=== PATIENT | male | born 1990 | race Caucasian/White ===

== ENCOUNTER 2021-02-26 20:34 | Emergency (ER) | payer BC, OTHER ==
[~2021-02-26] VITALS: Ht 177.8 cm; Wt 102.1 kg
[2021-02-26] MEDS ORDERED: KETOROLAC 30 MG/ML VIAL IVP STA (20:38)
[2021-02-26] MEDS ORDERED: LACTATED RINGERS 1,000 ML IV STA ×2 (20:38→22:14)
[2021-02-26 20:45] VITALS: BP 118/54
[2021-02-26] MEDS ORDERED: ONDANSETRON 4 MG/2 ML (SDV) Z0FRAN IVP ONE (20:45)
--- NOTE | 2021-02-26 20:56 | Diagnostic Imaging Report ---
EXAMINATION: Chest 1 view. HISTORY: Covid positive. Cough. COMPARISON: None available. FINDINGS: The lung volumes are low. No focal consolidation is seen. No large pleural effusion or pneumothorax is seen. The cardiomediastinal silhouette is normal in size and contour. No acute osseous abnormality is seen. IMPRESSION: Low lung volumes, likely due to poor inspiratory effort. No focal consolidation or pleural effusion. Dictated by: Dictated on workstation # [id number]
[2021-02-26] MEDS ORDERED: ACETAMINOPHEN 500 MG TAB (TYLENOL) ONE (21:00)
[2021-02-26] MEDS ORDERED: ACETAMINOPHEN 500 MG TAB (TYLENOL) PO STA (21:01)
[2021-02-26 21:09] LABS: BASOPHILS % (AUTO) 0 % (0-10); EOSINOPHILS % (AUTO) 0 % (0-10); HEMATOCRIT 43 % (40-54); HEMOGLOBIN 14.6 g/dL (13.3-17.7); LYMPHOCYTES # (AUTO) 1.6 10^3/uL (1.0-4.0); LYMPHOCYTES % (AUTO) 39 % (12-44); MEAN CORPUSCULAR HEMOGLOBIN 31 pg (25-34); MEAN CORPUSCULAR HGB CONC 34 g/dL (32-36); MEAN CORPUSCULAR VOLUME 91 fL (80-99); MEAN PLATELET VOLUME 10.5 fL (9.0-12.2); MONOCYTES # (AUTO) 0.3 10^3/uL (0.0-1.0); MONOCYTES % (AUTO) 7 % (0-12); NEUTROPHILS # (AUTO) 2.3 10^3/uL (1.8-7.8); NEUTROPHILS % (AUTO) 54 % (42-75); PLATELET COUNT 200 10^3/uL (130-400); WHITE BLOOD COUNT 4.2 10^3/uL (4.3-11.0)
--- NOTE | 2021-02-26 21:09 | ED General ---
General Stated Complaint: COVID POSITIVE Source of Information: Patient, EMS Exam Limitations: No Limitations History of Present Illness Date Seen by Provider: Feb 26, 2021 Time Seen by Provider: 20:33 Initial Comments Here with report of being Covid positive since 02/20/2021 from outside facility. Notes that his had increased fever today and insomnia since onset. States he is not able to eat or drink anything very well because he gets nauseated after eating after 5 bites. Has been using DayQuil and NyQuil to help with symptoms but last dose was last night. He has not had anything today. Arrives with a f ever of 102.8 per EMS. He is tachycardic. Overall feels weak. He is currently being evaluated for monoclonal antibody therapy. He is not hypoxic. Timing/Duration: 1 Week Severity: Moderate Modifying Factors: improves with Medication Associated Systoms: Cough, Fever/Chills, Loss of Appetite, Nausea/Vomiting, Shortness of Air, Weakness Allergies and Home Medications Allergies Coded Allergies: No Known Drug Allergies (Unverified , 02/26/21) Patient Home Medication List Home Medication List Reviewed: Yes Review of Systems Review of Systems Constitutional: see HPI, fever, malaise, weakness EENTM: nose congestion, throat pain Respiratory: cough, short of breath Cardiovascular: no symptoms reported Gastrointestinal: nausea, vomiting Genitourinary: No dysuria, No pain All Other Systems Reviewed Negative Unless Noted: Yes Past Tjavdas-Kvnjiv-Wdxlfm Hx Patient Social History Alcohol Use?: Yes Alcohol Frequency: Once in a while Past Medical History Surgeries: No Respiratory: No Cardiac: No Neurological: No Genitourinary: No Family Medical History Reviewed Nursing Family Hx Cancer Physical Exam-Suspected Sepsis Physical Exam Vital Signs Vital Signs - First Documented 02/26/21 20:45 Temp 39.4 Pulse 103 Resp 16 B/P (MAP) 118/54 (75) Pulse Ox 94 O2 Delivery Room Air Capillary Refill : Height, Weight, BMI Height: '" Weight: lbs. oz. kg; BMI Method: General Appearance: No Apparent Distress, WD/WN HEENT: PERRL/EOMI, Pharynx Normal Neck: Non Tender, Supple Respiratory: No Respiratory Distress, Wheezing (Trace wheezes throughout) Cardiovascular: No Murmur, Tachycardia Gastrointestinal: Non Tender, Soft Back: Normal Inspection, No CVA Tenderness, No Vertebral Tenderness Extremity: Normal Range of Motion, Non Tender Neurologic/Psychiatric: Alert, Oriented x3 Skin: normal color, warm/dry Focused Exam Lactate Level 02/26/21 20:50: Lactic Acid Level 0.98 Lactic Acid Level Laboratory Tests Test 02/26/21 20:50 Lactic Acid Level 0.98 MMOL/L (0.50-2.00) Progress/Results/Core Measures Suspected Sepsis SIRS Temperature: Pulse: Respiratory Rate: Laboratory Tests 02/26/21 20:50: White Blood Count 4.2L Blood Pressure / Mean: 02/26/21 20:50: Lactic Acid Level 0.98 Laboratory Tests 02/26/21 20:50: Creatinine 1.13, Platelet Count 200, Total Bilirubin 0.5 Results/Orders Lab Results Laboratory Tests Test 02/26/21 20:50 02/26/21 22:25 Range/Units White Blood Count 4.2 L 4.3-11.0 10^3/uL Red Blood Count 4.72 4.30-5.52 10^6/uL Hemoglobin 14.6 13.3-17.7 g/dL Hematocrit 43 40-54 % Mean Corpuscular Volume 91 80-99 fL Mean Corpuscular Hemoglobin 31 25-34 pg Mean Corpuscular Hemoglobin Concent 34 32-36 g/dL Red Cell Distribution Width 11.9 10.0-14.5 % Platelet Count 200 130-400 10^3/uL Mean Platelet Volume 10.5 9.0-12.2 fL Immature Granulocyte % (Auto) 0 % Neutrophils (%) (Auto) 54 42-75 % Lymphocytes (%) (Auto) 39 12-44 % Monocytes (%) (Auto) 7 0-12 % Eosinophils (%) (Auto) 0 0-10 % Basophils (%) (Auto) 0 0-10 % Neutrophils # (Auto) 2.3 1.8-7.8 10^3/uL Lymphocytes # (Auto) 1.6 1.0-4.0 10^3/uL Monocytes # (Auto) 0.3 0.0-1.0 10^3/uL Eosinophils # (Auto) 0.0 0.0-0.3 10^3/uL Basophils # (Auto) 0.0 0.0-0.1 10^3/uL Immature Granulocyte # (Auto) 0.0 0.0-0.1 10^3/uL D-Dimer 0.89 H 0.00-0.49 UG/ML Sodium Level 133 L 135-145 MMOL/L Potassium Level 3.3 L 3.6-5.0 MMOL/L Chloride Level 96 L 98-107 MMOL/L Carbon Dioxide Level 22 21-32 MMOL/L Anion Gap 15 H 5-14 MMOL/L Blood Urea Nitrogen 8 7-18 MG/DL Creatinine 1.13 0.60-1.30 MG/DL Estimat Glomerular Filtration Rate 76 BUN/Creatinine Ratio 7 Glucose Level 105 70-105 MG/DL Lactic Acid Level 0.98 0.50-2.00 MMOL/L Calcium Level 9.0 8.5-10.1 MG/DL Corrected Calcium 8.9 8.5-10.1 MG/DL Magnesium Level 2.0 1.6-2.4 MG/DL Total Bilirubin 0.5 0.1-1.0 MG/DL Aspartate Amino Transf (AST/SGOT) 185 H 5-34 U/L Alanine Aminotransferase (ALT/SGPT) 156 H 0-55 U/L Alkaline Phosphatase 40 40-136 U/L C-Reactive Protein High Sensitivity 4.53 H 0.00-0.50 MG/DL Total Protein 7.5 6.4-8.2 GM/DL Albumin 4.1 3.2-4.5 GM/DL Urine Color YELLOW Urine Clarity CLEAR Urine pH 6.5 5-9 Urine Specific [place] 1.010 L 1.016-1.022 Urine Protein 1+ H NEGATIVE Urine Glucose (UA) NEGATIVE NEGATIVE Urine Ketones 1+ H NEGATIVE Urine Nitrite NEGATIVE NEGATIVE Urine Bilirubin NEGATIVE NEGATIVE Urine Urobilinogen 0.2 < = 1.0 MG/DL Urine Leukocyte Esterase NEGATIVE NEGATIVE Urine RBC (Auto) NEGATIVE NEGATIVE Urine RBC NONE /HPF Urine WBC NONE /HPF Urine Squamous Epithelial Cells RARE /HPF Urine Crystals NONE /LPF Urine Bacteria NEGATIVE /HPF Urine Casts NONE /LPF Urine Mucus SMALL H /LPF Urine Culture Indicated NO My Orders Orders - JENNIFER CUELLAR MD Chest 1 View, Ap/Pa Only (02/26/21 20:37) Ondansetron Injection (Zofran Injectio (02/26/21 20:45) Lactated Ringers (Lr 1000 Ml Iv Solution (02/26/21 20:38) Ed Iv/Invasive Line Start (02/26/21 20:38) Cbc With Automated Diff (02/26/21 20:38) Comprehensive Metabolic Panel (02/26/21 20:38) Hs C Reactive Protein (02/26/21 20:38) Fibrin Degradation Products (02/26/21 20:38) Magnesium (02/26/21 20:38) Ua Culture If Indicated (02/26/21 20:38) Ketorolac Injection (Toradol Injection) (02/26/21 20:38) Lactic Acid Analyzer (02/26/21 20:39) Blood Culture (02/26/21 20:39) Acetaminophen Tablet (Tylenol Tablet) (02/26/21 21:01) Acetaminophen Tablet (Tylenol Tablet) (02/26/21 21:00) Lactated Ringers (Lr 1000 Ml Iv Solution (02/26/21 22:14) Medications Given in ED Current Medications Medications Dose Ordered Sig/Raffaele Route Start Time Stop Time Status Last Admin Dose Admin Ondansetron HCl 4 mg ONCE ONCE IVP 02/26/21 20:45 02/26/21 20:46 DC 02/26/21 20:55 4 MG Vital Signs/I&O 02/26/21 02/26/21 02/26/21 20:45 20:45 22:47 Temp 39.4 37.6 Pulse 103 76 Resp 16 18 B/P (MAP) 118/54 (75) 117/70 Pulse Ox 94 98 O2 Delivery Room Air Room Air Room Air Capillary Refill : Progress Note : Progress Note Seen and evaluated. IV, labs, UA, chest x-ray, LR 1 L bolus, Zofran 4 mg IV and Toradol 30 mg IV ordered. Tylenol 1 g p.o. ordered. Monitor patient. 2309: Repeat LR 1 L bolus ordered and given. Overall doing much better. Chest x-ray is negative. I did give him information for monoclonal antibody and would like him to get that. Order has been written already earlier today. He meets qualification due to BMI and he is within the timeframe. Discharged home with return precautions. Patient verbalized understanding of instructions and agreement with plan. Diagnostic Imaging Diagonstic Imaging: Xray Plain Films/CT/US/NM/MRI: chest Comments [facility] [place], [place] NAME: VITALY MENDEZ REC#: [id number] PT STATUS: REG ER : 1990 PHYSICIAN: JENNIFER CUELLAR MD ADMIT DATE: 02/26/21/ER Signed Date of Exam:02/26/21 CHEST 1 VIEW, AP/PA ONLY EXAMINATION: Chest 1 view. HISTORY: Covid positive. Cough. COMPARISON: None available. FINDINGS: The lung volumes are low. No focal consolidation is seen. No large pleural effusion or pneumothorax is seen. The cardiomediastinal silhouette is normal in size and contour. No acute osseous abnormality is seen. IMPRESSION: Low lung volumes, likely due to poor inspiratory effort. No focal consolidation or pleural effusion. Dictated by: Dictated on workstation # [id number] Dict: 02/26/212054 Trans: 02/26/212056 [facility] [id number] Interpreted by: VALERIE MARTINEZ DO Electronically signed by: VALERIE MARTINEZ DO 02/26/212056 Departure Impression Primary Impression: COVID-19 virus infection Additional Impression: Dehydration Disposition: 01 HOME, SELF-CARE Condition: Stable Departure-Patient Inst. Referrals: UNKNOWN (PCP/Family) Primary Care Physician Patient Instructions: Bamlanivimab and Etesevimab FDA Fact Sheet, REGEN-COV (casirivimab and imdevimab) FDA Fact Sheet, COVID-19 (DC), Dehydration, Adult (DC), Prone Position Add. Discharge Instructions: Drink plenty of fluids and get plenty of rest. You may take T ylenol/acetaminophen 1000 mg every 6 hours as needed for fever or pain. You may take ibuprofen 800 mg every 8 hours as needed for fever pain. It is okay to take those together. You may use Benadryl 25 mg at night to help with sleep if needed. Monitor your oxygen saturation while resting. If your oxygen saturation is 90% or below while resting, return to the emergency department. Eat a light diet. You may take Pepcid or the generic famotidine 20 mg once or twice daily for stomach upset throughout the illness if needed. Return for worse pain, increasing weakness, breathing problems, decreasing oxygen saturations or other concerns as needed. Continue to follow the direction of the health department regarding isolation. It is okay to call Dr. Cuellar if you are having concerns at the number given. JENNIFER CUELLAR MD Feb 26, 2021 21:09
[2021-02-26 21:17] LABS: ALBUMIN 4.1 GM/DL (3.2-4.5)
[2021-02-26 21:18] LABS: POTASSIUM 3.3 MMOL/L (3.6-5.0)
[2021-02-26 21:20] LABS: TOTAL PROTEIN 7.5 GM/DL (6.4-8.2)
[2021-02-26 21:22] LABS: BILIRUBIN,TOTAL 0.5 MG/DL (0.1-1.0)
[2021-02-26 21:24] LABS: CREATININE SERUM 1.13 MG/DL (0.60-1.30)
[2021-02-26 22:33] LABS: BILIRUBIN,URINE NEGATIVE (NEGATIVE); CLARITY,URINE CLEAR; COLOR,URINE YELLOW; GLUCOSE, URINE (UA) NEGATIVE (NEGATIVE); KETONES,URINE 1+ (NEGATIVE); LEUKOCYTE ESTERASE ,URINE NEGATIVE (NEGATIVE); NITRITE,URINE NEGATIVE (NEGATIVE); PH,URINE 6.5 (5-9); PROTEIN,URINE 1+ (NEGATIVE)
[2021-02-26 22:48] LABS: BACTERIA,URINE NEGATIVE /HPF; SQUAMOUS EPITHELIAL CELL,UR RARE /HPF
== END 2021-02-26 23:32 | disposition home or self-care (01) ==
LOC: EDUNIT# 20:34 → ER 20:36
DX: U07.1 COVID-19 (principal); E86.0 Dehydration; R00.0 Tachycardia, unspecified
CPT/HCPCS: 36415; 71045; 80053; 81000; 83605; 83735; 85025; 85379; 86141; 87040

== ENCOUNTER 2021-02-27 11:47 | Outpatient (CLI) | payer BC ==
[~2021-02-27] VITALS: Ht 177.8 cm; Wt 102.1 kg
[2021-02-27 11:50] VITALS: BP 123/61
[2021-02-27] MEDS ORDERED: ONDANSETRON 4 MG/2 ML (SDV) Z0FRAN IV PRN (12:15)
[2021-02-27] MEDS ORDERED: ACETAMINOPHEN 500 MG TAB (TYLENOL) PO PRN (12:15)
[2021-02-27] MEDS ORDERED: BAMLANIVIMAB 700 MG/ETESEVIMAB 1,400 MG IN NS IV ONE ×3 (12:15)
[2021-02-27] MEDS ORDERED: EPINEPHrine INJECTION 1 MG/ML AMP IM PRN (12:15)
[2021-02-27] MEDS ORDERED: diphenhydrAMINE 50 MG/ML INJ (BENADRYL) IV PRN (12:15)
[2021-02-27 13:36] VITALS: BP 126/58
== END 2021-02-27 13:54 | disposition home or self-care (01) ==
LOC: INFUSION 11:47
PROVIDERS: ATTEND Emergency Medicine
DX: U07.1 COVID-19 (principal)